=== PATIENT | female | born 1970 | race Caucasian/White ===

== ENCOUNTER 2016-04-10 14:45 | Outpatient (CLI) ==
[2012-09-22 20:52] VITALS: BMI 23.5
[2016-04-10 15:07] LABS: BASOPHILS % (AUTO) 0.6 % (0.0-3.0); EOSINOPHILS # (AUTO) 0.1 K/ul (0.0-0.7); EOSINOPHILS % (AUTO) 0.7 % (0.0-7.0); HEMATOCRIT 33.9 % (37.0-47.0); HEMOGLOBIN 11.4 g/dl (12.0-16.0); IMMATURE GRANULOCYTE % (AUTO) 0.3 % (0.0-5.0); IMMATURE RETIC FRACTION 4.3; LYMPHOCYTES # (AUTO) 2.9 K/uL (0.60-3.4); LYMPHOCYTES % (AUTO) 40.1 (10.0-50.0); MEAN CORPUSCULAR HEMOGLOBIN 29.8 pg (27.0-31.0); MEAN CORPUSCULAR HGB CONC 33.6 (31.8-35.4); MEAN CORPUSCULAR VOLUME 88.7 fl (81.0-99.0); MONOCYTES # (AUTO) 0.4 K/uL (0.4-2.0); MONOCYTES % (AUTO) 5.5 (0-10); NEUTROPHILS # (AUTO) 3.8 K/ul (2.0-6.9); NEUTROPHILS % (AUTO) 52.8; PLATELET COUNT 246 10^3/uL (140-440); RED BLOOD COUNT 3.82 10^6/ul (4.20-5.40); RETICULOCYTE % 0.86 %; WHITE BLOOD COUNT 7.24 K/ul (4.6-10.2)
[2016-04-10 16:19] LABS: ALBUMIN 4.4 g/dL (3.4-5.0); ALBUMIN/GLOBULIN RATIO 1.26; ANION GAP 16.1; BILIRUBIN,TOTAL 0.68 mg/dL (0.00-1.20); BUN/CREATININE RATIO 11.7; CALCIUM 9.8 mg/dL (8.2-10.2); CHOL/HDL RATIO 3.2 (4.5-5.5); CREATININE 0.94 mg/dL (0.60-1.30); FERRITIN 162.17 ng/mL (4.63-204.00); FOLATE 15.4 ng/mL (3.1-20.5); POTASSIUM 4.1 mmol/L (3.5-5.10); TOTAL PROTEIN 7.9 g/dL (6.4-8.2)
== END 2016-04-10 14:46 | disposition home or self-care (01) ==
LOC: LAB 14:45
PROVIDERS: ATTEND Internal Medicine
DX: E78.5 Hyperlipidemia, unspecified (principal); I10 Essential (primary) hypertension; D64.9 Anemia, unspecified; R13.10 Dysphagia, unspecified
CPT/HCPCS: 36415; 80053; 80061; 82306; 82607; 82728; 82746; 83036; 83540; 83550; 84443; 85025; 85045

== ENCOUNTER 2016-09-26 14:51 | Outpatient (CLI) ==
[2012-09-22 20:52] VITALS: BMI 23.5
[2016-09-26 15:07] LABS: BASOPHILS # (AUTO) 0.1 K/uL (0-0.2); EOSINOPHILS # (AUTO) 0.1 K/ul (0.0-0.7); EOSINOPHILS % (AUTO) 1.1 % (0.0-7.0); HEMATOCRIT 36.1 % (37.0-47.0); HEMOGLOBIN 12.2 g/dl (12.0-16.0); IMMATURE GRANULOCYTE % (AUTO) 0.2 % (0.0-5.0); LYMPHOCYTES # (AUTO) 2.4 K/uL (0.60-3.4); MEAN CORPUSCULAR HGB CONC 33.8 (31.8-35.4); MEAN CORPUSCULAR VOLUME 88.9 fl (81.0-99.0); MONOCYTES # (AUTO) 0.3 K/uL (0.4-2.0); NEUTROPHILS # (AUTO) 3.4 K/ul (2.0-6.9); NEUTROPHILS % (AUTO) 53.7; PLATELET COUNT 273 10^3/uL (140-440); RED BLOOD COUNT 4.06 10^6/ul (4.20-5.40); WHITE BLOOD COUNT 6.25 K/ul (4.6-10.2)
[2016-09-26 15:47] LABS: ALBUMIN 4.5 g/dL (3.4-5.0); ALBUMIN/GLOBULIN RATIO 1.32; ANION GAP 13.4; BILIRUBIN,TOTAL 0.71 mg/dL (0.00-1.20); BUN/CREATININE RATIO 10.84; CALCIUM 10.1 mg/dL (8.2-10.2); CHOL/HDL RATIO 3.4 (4.5-5.5); CREATININE 0.83 mg/dL (0.60-1.30); POTASSIUM 4.4 mmol/L (3.5-5.10); TOTAL PROTEIN 7.9 g/dL (6.4-8.2)
== END 2016-09-26 14:52 | disposition home or self-care (01) ==
LOC: LAB 14:51
PROVIDERS: ATTEND Internal Medicine
DX: E78.5 Hyperlipidemia, unspecified (principal); D64.9 Anemia, unspecified; I10 Essential (primary) hypertension; E53.8 Deficiency of other specified B group vitamins
CPT/HCPCS: 36415; 80053; 80061; 82607; 83036; 84443; 85025

== ENCOUNTER 2016-11-20 12:34 | Outpatient (CLI) ==
[2012-09-22 20:52] VITALS: BMI 23.5
== END 2016-11-20 12:35 | disposition home or self-care (01) ==
LOC: LAB 12:34
PROVIDERS: ATTEND Allergy & Immunology
DX: T78.1XXA Other adverse food reactions, not elsewhere classified, initial encounter (principal)
CPT/HCPCS: 36415

== ENCOUNTER 2017-02-25 19:48 | Emergency (ER) | payer OTHER ==
[2017-02-25 19:55] VITALS: BP 145/85; TEMP 98.8; BMI 21.7
[2017-02-25] MEDS ORDERED: TORADOL IM STA (20:05)
--- NOTE | 2017-02-25 20:12 | ED.PDOC ---
General ED Provider: Dr. 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 Additionally complains of some numbness radiating to the forearm. The Pain she states is located on the lower mid back. Time Seen by Physician: 20:08 Mode of Arrival: Walk-In Information Source: Patient Exam Limitations: No limitations Primary Care Provider: TERRENCE PRATT Nursing and Triage Documentation Reviewed and Agree: Yes Reviewed sepsis parameters & appropriate labs ordered?: Yes System Inflammatory Response Syndrome: Not Applicable Sepsis Protocol: For patient's 13 years and over: Temp is 96.8 and below OR 101 and greater Pulse >90 BPM Resp >20/minute Acutely Altered Mental Status Are patient's symptoms suggestive of a new infection, such as: -Pneumonia -Skin, Soft Tissue -Endocarditis -UTI -Bone, Joint Infection -Implantable Device -Acute Abdominal Infection -Wound Infection -Meningitis -Blood Stream Catheter Infection -Unknown System Inflammatory Response Syndrome: Not Applicable Musculoskeletal Complaint Exam - Elbow Pain Complaint/Exam Mechanism of Injury: Reports: Trauma Onset/Duration: 30 min ago Symptoms Are: Still present Onset of Pain: Reports: Immediate, Post accident Initial Severity: Severe Current Severity: Moderate Location: Reports: Discrete (right elbow ) Character: Reports: Aching, Throbbing Alleviating: Reports: Rest, Ice Aggravating: Reports: Movement Associated Signs and Symptoms: Reports: Swelling, Redness, Numbness, Tingling. Denies: Bruising, Fever, Weakness Related Surgical History: Reports: None Elbow Findings: Present: Swelling, Ecchymosis Tenderness: Present: Lateral Condyle, Olecranon, Radial Head Limited Range of Motion: Present: Flexion, Extension, Pronation, Supination Differential Diagnoses: Closed Fracture, Sprain, Strain, Tendonitis - Back Pain Complaint/Exam Mechanism of Injury: Reports: Trauma Onset/Duration: 30 mins ago Symptoms Are: Still present Timing: Constant Initial Severity: Severe Current Severity: Moderate Location: Reports: Discrete (mid lumber area ) Character: Reports: Aching, Throbbing Aggravating: Reports: Bending, Walking Alleviating: Reports: None TAD Risk Factors: Reports: None AAA Risk Factors: Reports: None Cauda Equina Risk Factors: Reports: None Epidural Abcess Risk Factors: Reports: None Related Surgical History: Reports: None Focal Tenderness: Yes ( lumber spine area ) Paraspinal Muscle Tenderness: No Paraspinal Muscle Spasm: Yes (mild) Scoliosis: No Lordosis: No Kyphosis: No SLR Test: Right Negative, Left Negative Hip Motion Testing Pain: Right Negative Focal Weakness: Present: None, Left facial Focal Sensory Loss: Present: None Gait: Present: Normal Back Picture: 1 - tenderness to palpation Differential Diagnoses: Herniated Disk, Strain, Sprain Review of Systems - Review Of Systems Constitutional: Reports: No symptoms Eyes: Reports: No symptoms Ears, Nose, Mouth, Throat: Reports: No symptoms Respiratory: Reports: No symptoms Cardiac: Reports: No symptoms GI: Reports: No symptoms : Reports: No symptoms Musculoskeletal: Reports: Back pain, Joint pain Skin: Reports: Bruising Neurological: Reports: Anxiety Endocrine: Reports: No symptoms Hematologic/Lymphatic: Reports: No symptoms All Other Systems: Reviewed and Negative Past Medical History - Past Medical History Previously Healthy: Yes Endocrine: Reports: None Cardiovascular: Reports: Hypertension Respiratory: Reports: None Hematological: Reports: None Gastrointestinal: Reports: None Genitourinary: Reports: None Neuro/Psych: Reports: None Musculoskeletal: Reports: None Cancer: Reports: None Last Menstrual Period: NA - Surgical History General Surgical History: Reports: Hysterectomy, Appendectomy, Cholecystectomy - Family History Family History: Reports: None - Social History Smoking Status: Never smoker Hx Substance Use: No Alcohol Screening: None - Immunizations Tetanus Shot up to Date: Yes Physical Exam - Physical Exam Appearance: Well-appearing Pain Distress: Moderate Neck: Supple Respiratory: Airway patent, Breath sounds clear, Breath sounds equal, Respirations nonlabored Cardiovascular: RRR, Pulses normal, No rub, No murmur GI/: Soft, Nontender, No masses, Bowel sounds normal, No Organomegaly Musculoskeletal: Limited ROM Skin: Warm, Dry Neurological: Alert, Oriented Interpretation - Radiology Interpretation Radiology Interpretation By: ED Physician Radiology Results: Negative Exam Interpreted: Other (Elbow) Radiology Interpretation By: ED Physician Radiology Results: Negative Exam Interpreted: Other (Lumbar spine area ) Critical Care Note - Critical Care Note Total Time (mins): 0 Course - Course Orders, Labs, Meds: Orders Category Date Time Status AIDA [ED AIDA WRAP] .ONCE EMERGENCY 02/25/17 21:03 Active ED APPLY ICE AFFECTED AREA .ONCE EMERGENCY 02/25/17 20:05 Active Hydrocodone Bit/Acetaminophen [Flint 5-325] MEDS 02/25/17 21:14 Discontinued 2 tab PO ONCE STA Ketorolac Tromethamine [Toradol] MEDS 02/25/17 20:05 Discontinued 60 mg IM ONCE STA ELBOW, RIGHT MIN 3 VIEWS Stat RADS 02/25/17 20:05 Taken LUMBAR SPINE, MIN 4 VIEWS Stat RADS 02/25/17 20:05 Taken Medications Discontinued Medications Generic Name Dose Route Start Last Admin Trade Name Freq PRN Reason Stop Dose Admin Acetaminophen/Hydrocodone Bitart 2 tab 02/25/17 21:14 Flint 5-325 PO 02/25/17 21:15 ONCE STA Ketorolac Tromethamine 60 mg 02/25/17 20:05 02/25/17 20:31 Toradol IM 02/25/17 20:06 60 mg ONCE STA Administration Vital Signs: Temp Pulse Resp BP Pulse Ox 02/25/17 19:49 98.8 F 74 16 145/85 H 98 Departure - Departure Time of Disposition: 21:12 Disposition: HOME SELF-CARE Discharge Problem: Elbow contusion Qualifiers: Encounter type: initial encounter Laterality: right Qualified Code(s): S50.01XA - Contusion of right elbow, initial encounter Lumbar back sprain Qualifiers: Encounter type: initial encounter Qualified Code(s): S33.5XXA - Sprain of ligaments of lumbar spine, initial encounter Instructions: Elbow Sprain (ED), Lower Back Exercises (ED) Condition: Stable Pt referred to PMD for follow-up: Yes IPMP verified?: No Additional Instructions: Take medications as prescribed Follow up with PCP in 3 -5 days if not better. Prescriptions: Hydrocodone/Acetaminophen [Hydrocodon-Acetaminophen 5-325] 1 each PO TID PRN # 12 tablet PRN Reason: Severe Pain Allergies/Adverse Reactions: Allergies fish oil Allergy (Unverified 05/25/15 14:41) Rash Home Medications: Ambulatory Orders Naproxen [Naprosyn] 500 mg PO BID #50 07/18/15 Hydrocodone/Acetaminophen [Hydrocodon-Acetaminophen 5-325] 1 each PO TID PRN # 12 tablet 02/25/17 Disposition Discussed With: Patient
[2017-02-25] MEDS ORDERED: ED AFTER HOURS SUPPLY MED SENT HOME PO ONE (21:03)
[2017-02-25] MEDS ORDERED: NORCO 5-325 PO STA (21:14)
--- NOTE | 2017-02-26 07:09 | DI ---
EXAM: RIGHT ELBOW HISTORY: Fall, pain and swelling FINDINGS: Right elbow three-view. Bone and joint structures appear normal. There is no joint dislo cation or effusion. No fracture is identified. Bone density and soft tissues are within normal limi ts. IMPRESSION: Findings within normal limits.
--- NOTE | 2017-02-26 07:10 | DI ---
EXAM: LUMBAR SPINE 5 VIEWS HISTORY: Lower back pain, fall FINDINGS: Lumbar spine five views including bilateral obliques. Probable subtle scoliosis. The vis ualized body of the sacrum and sacroiliac joints are normal. Lateral views demonstrate normal verteb ral body height and disc spaces. No spondylolisthesis. Oblique views reveal normal facets and pars intra-articularis structures. Bone density normal. IMPRESSION: No fracture or subluxation.
== END 2017-02-25 21:24 | disposition home or self-care (01) ==
LOC: ED 19:48
DX: S50.01XA Contusion of right elbow, initial encounter (principal); S33.5XXA Sprain of ligaments of lumbar spine, initial encounter; W00.0XXA Fall on same level due to ice and snow, initial encounter; Y92.481 Parking lot as the place of occurrence of the external cause
CPT/HCPCS: 96372; 99283

== ENCOUNTER 2017-05-21 10:03 | Outpatient (CLI) | payer OTHER | END 2017-05-21 10:04 | disposition home or self-care (01) | LOC: LAB 10:03 | PROVIDERS: ATTEND Internal Medicine | DX: E78.5 Hyperlipidemia, unspecified (principal); I10 Essential (primary) hypertension | CPT/HCPCS: 36415; 80053; 80061; 83036; 84443; 85025 ==

== ENCOUNTER 2017-08-21 09:57 | Outpatient (CLI) | payer OTHER ==
--- NOTE | 2017-08-21 11:46 | DI ---
EXAM: PA and lateral views of the chest HISTORY: Left-sided chest pain COMPARISON: Chest x-ray 09/22/[address] chest 09/22/2012 with multiple priors FINDINGS: The cardiomediastinal silhouette is normal. There is no pneumothorax or pleural effusion. There is no consolidation, nodule or mass. The osseous structures are unremarkable. IMPRESSION: No acute cardiopulmonary process
--- NOTE | 2017-08-21 11:51 | DI ---
EXAM: Three views of the thoracic spine HISTORY: Back pain. COMPARISON: None FINDINGS: There is no acute compression fracture or subluxation. There is minimal disc space narrowi ng and osteophyte formation. There is no lytic or blastic lesion. Soft tissues are unremarkable. S urgical clips in right upper quadrant are present. 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
== END 2017-08-21 09:58 | disposition home or self-care (01) ==
LOC: RAD 09:57
PROVIDERS: ATTEND Internal Medicine
DX: R07.9 Chest pain, unspecified (principal); M54.9 Dorsalgia, unspecified; I10 Essential (primary) hypertension; D64.9 Anemia, unspecified; E78.5 Hyperlipidemia, unspecified
CPT/HCPCS: 36415; 80053; 80061; 82550; 82553; 83036; 84443; 85025; 85651

== ENCOUNTER 2017-10-24 07:43 | Outpatient (CLI) | payer OTHER ==
--- NOTE | 2017-10-24 10:15 | US ---
EXAM: Abdominal ultrasound limited HISTORY: Epigastric pain with cholecystectomy COMPARISON: CT abdomen 10/22/2011 TECHNIQUE: Sonographic and limited Doppler evaluation of the right upper quadrant was performed. FINDINGS: The liver is increased in echogenicity and measures 17 cm. The portal vein is patent. Th e gallbladder has been removed. Common bile duct is unremarkable and measures 0.5 cm in diameter. The pancreas is unremarkable in appearance. The right kidney measures 9.2 x 3.4 x 3.0 cm with cortica l thickness of 0.7 cm. IMPRESSION: 1. Increased echogenicity of the liver suggestive of hepatic steatosis. 2. Changes of prior cholecystectomy.
== END 2017-10-24 07:44 | disposition home or self-care (01) ==
LOC: RAD 07:43
PROVIDERS: ATTEND Family Medicine
DX: R10.13 Epigastric pain (principal); R10.11 Right upper quadrant pain
CPT/HCPCS: 36415; 80053; 83690; 85025; 85651; 86038; 86140

== ENCOUNTER 2017-10-30 16:40 | Outpatient (CLI) ==
--- NOTE | 2017-10-31 09:23 | CT ---
EXAM: CT of the abdomen with and without contrast History: Epigastric abdominal pain and bloating. Comparison: Abdominal ultrasound 10/24/2017, CT abdomen 10/22/2011 Technique: Multiplanar CT images through the abdomen were obtained with and without the administrati on of IV contrast. Findings: Lung bases are clear. No acute osseous abnormalities. Status post cholecystectomy. The liver is mildly enlarged measuring 18 cm in length. The liver is f atty. Spleen is unremarkable. No renal stones and no hydronephrosis. No ureteral calculi. The appe ndix is not seen and might be off the field of view. Adrenal glands are unremarkable. Pancreas is wi thin normal limits. No renal masses. No dilated loops of bowel. No free air and no ascites. No ly mphadenopathy. No protruding hernias. Impression: 1. No acute intra-abdominal process. 2. Enlarged fatty liver. 3. Status post cholecystectomy
== END 2017-10-30 16:41 | disposition home or self-care (01) ==
LOC: RAD 16:40
PROVIDERS: ATTEND Family Medicine
DX: R10.13 Epigastric pain (principal); G89.18 Other acute postprocedural pain

== ENCOUNTER 2017-12-02 08:27 | Outpatient (CLI) | END 2017-12-02 08:28 | disposition home or self-care (01) | LOC: FCC-LAB 08:27 | PROVIDERS: ATTEND Family Medicine | DX: R55 Syncope and collapse (principal) | CPT/HCPCS: 36415; 83037 ==

== ENCOUNTER 2017-12-02 13:29 | Outpatient (CLI) | payer OTHER | END 2017-12-02 13:30 | disposition home or self-care (01) | LOC: LAB 13:29 | PROVIDERS: ATTEND Family Medicine | DX: R26.89 Other abnormalities of gait and mobility (principal); M54.6 Pain in thoracic spine; R52 Pain, unspecified; G89.29 Other chronic pain; E34.9 Endocrine disorder, unspecified; E55.9 Vitamin D deficiency, unspecified; R79.89 Other specified abnormal findings of blood chemistry | CPT/HCPCS: 36415; 80053; 82306; 83037; 84439; 84443; 84702; 85025; 85651; 86038; 86140 ==

== ENCOUNTER 2017-12-04 07:55 | Outpatient (CLI) | payer OTHER ==
--- NOTE | 2017-12-04 10:24 | MRI ---
EXAM: Brain MRI with and without contrast. HISTORY: Abnormality of gait and mobility. COMPARISON: None. TECHNIQUE: Multiplanar, multisequence MR images were acquired of the brain before and after administ ration of intravenous contrast. FINDINGS: The midline structures are central and the craniocervical junction is unremarkable. There is a small 3.4 cm AP by 9.4 mm TX by 1.1 cm CC crescent shaped ovoid cystic lesion in the superior ri ght basal ganglia along the lateral body of the right lateral ventricle which is at least partially s eparated from the lateral ventricle by a thin septation. This follows cerebrospinal fluid on all pul se sequences. 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 The third and fourth ventricles and the sulci are normal in size. No abnormal extra-axial fluid collections ar e identified. The brain parenchyma has no diffusion restriction to suggest acute hypoperfusion or infarction. Ther e is a thin rim of periventricular FLAIR hyperintensity and there are small T2 / FLAIR hyperintensiti es in the supratentorial white matter consistent with minor to mild leukomalacia. There is no abnorm al dark gradient echo signal. After administration of gadolinium, no enhancing lesions are identifie d. The corpus callosum is normal. The pituitary gland is low normal in size with homogeneous contra st enhancement. The infundibulum is midline. There are no intraorbital masses. Paranasal sinuses, middle ears and mastoids are clear. Rightward nasal septal deviation is present. There is no abnormal contrast enhancement in the intra auditory c anals or labyrinthine structures. Flow voids are present in the major intracranial arteries and dural venous sinuses. IMPRESSION: 1. 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 This may be seen as a sequela of an early in utero cerebral ischemic insult or can be familial. No significant surrounding gliosis is present to suggest a or r ecent ischemic insult. 2. Minor to mild leukomalacia which is nonspecific. 3. No intracranial mass, hemorrhage or acute cerebral infarct.
== END 2017-12-04 07:56 | disposition home or self-care (01) ==
LOC: RAD 07:55
PROVIDERS: ATTEND Family Medicine
DX: R26.89 Other abnormalities of gait and mobility (principal); E34.9 Endocrine disorder, unspecified; R14.0 Abdominal distension (gaseous); R51 Headache
CPT/HCPCS: 93005; 93010

== ENCOUNTER 2018-05-10 19:54 | Emergency (ER) | payer OTHER ==
[2018-05-10] MEDS ORDERED: TETRACAINE 0.5% UNIT-DOSE OP STA (19:58)
[2018-05-10] MEDS ORDERED: EYE-STREAM OP STA (19:58)
[2018-05-10] MEDS ORDERED: FUL-GLO OP STA (19:59)
[2018-05-10 20:00] VITALS: BP 128/84; TEMP 97.9; BMI 24.7
[2018-05-10] MEDS ORDERED: CIPRO 0.3% OPTH SOL OP STA (20:41)
--- NOTE | 2018-05-10 20:45 | ED.PDOC ---
General ED Provider: Dr. DEANA GARY Chief Complaint: Eye Problem Stated Complaint: Patient is a 48 year old Time Seen by Physician: 20:00 Mode of Arrival: Walk-In Information Source: Patient Exam Limitations: No limitations Primary Care Provider: GRANT CHUNG Nursing and Triage Documentation Reviewed and Agree: Yes Does patient meet sepsis criteria?: No System Inflammatory Response Syndrome: Not Applicable Sepsis Protocol: For patient's 13 years and over: Temp is 96.8 and below OR 101 and greater Pulse >90 BPM Resp >20/minute Acutely Altered Mental Status Are patient's symptoms suggestive of a new infection, such as: -Pneumonia -Skin, Soft Tissue -Endocarditis -UTI -Bone, Joint Infection -Implantable Device -Acute Abdominal Infection -Wound Infection -Meningitis -Blood Stream Catheter Infection -Unknown EENT Complaint Exam - Eye Complaint/Exam Onset/Duration: 1 day Symptoms Are: Still present Timing: Constant Initial Severity: Moderate Current Severity: Moderate Location: Left Character: Reports: Throbbing, Foreign body sensation Aggravating: Reports: Light, Blinking Alleviating: Reports: Darkness Associated Signs and Symptoms: Reports: Photophobia, Clear drainage Eye Surgical History: Reports: None Penetrating Injury Risk Factors: None Globe Rupture Risk Factors: None Acute Glaucoma Risk Factors: None Optic Artery Occlusion Risk Factors: None Visual Acuity Right Eye: 20/30 Visual Acuity Left Eye: 20/40 Visual Field: Normal Extraocular Movement: Normal Orbit Findings: Normal Globe Findings: Intact Lid Findings: Normal Conjunctival Findings: Red Corneal Findings: Clear Fluorescein Uptake: Yes (at 8 oclock position measuring 2 mm in diameter ) Differential Diagnoses: Conjunctivitis, Corneal Abrasion Review of Systems - Review Of Systems Constitutional: Reports: No symptoms Eyes: Reports: Blurred vision (with pain ) Ears, Nose, Mouth, Throat: Reports: No symptoms Respiratory: Reports: No symptoms Cardiac: Reports: No symptoms GI: Reports: No symptoms : Reports: No symptoms Musculoskeletal: Reports: No symptoms Skin: Reports: No symptoms Neurological: Reports: No symptoms Endocrine: Reports: No symptoms Hematologic/Lymphatic: Reports: No symptoms All Other Systems: Reviewed and Negative Past Medical History - Past Medical History Previously Healthy: Yes Endocrine: Reports: None Cardiovascular: Reports: Hypertension Respiratory: Reports: None Hematological: Reports: None Gastrointestinal: Reports: None Genitourinary: Reports: None Neuro/Psych: Reports: None Musculoskeletal: Reports: None Cancer: Reports: None Last Menstrual Period: 1998 - Surgical History General Surgical History: Reports: Hysterectomy, Appendectomy, Cholecystectomy - Family History Family History: Reports: None - Social History Smoking Status: Never smoker Hx Substance Use: No Alcohol Screening: None - Immunizations Tetanus Shot up to Date: Yes Physical Exam - Physical Exam Appearance: Well-appearing Pain Distress: Moderate Eyes: ABNER, EOMI, Conjunctiva clear ENT: Ears normal, Nose normal, Oropharynx normal Neck: Supple Skin: Warm, Dry Neurological: Alert, Oriented Psychiatric: Anxious Critical Care Note - Critical Care Note Total Time (mins): 0 Course - Course Orders, Labs, Meds: Orders Category Date Time Status ED EYE IRRIGATION .ONCE EMERGENCY 05/10/18 19:58 Active Balanced Salt Solution [Eye-Stream] MEDS 05/10/18 19:58 Discontinued 1 bottle OP ONCE STA Ciprofloxacin Opth Sasha [Cipro 0.3% Opth Sasha] MEDS 05/10/18 20:41 Stat 1 drop OP ONCE STA Fluorescein Sodium [Ful-Mona] MEDS 05/10/18 19:59 Discontinued 1 strip OP ONCE STA Tetracaine HCl/Pf [Tetracaine 0.5% Unit-Dose] MEDS 05/10/18 19:58 Discontinued 2 drop OP ONCE STA Medications Generic Name Dose Route Start Last Admin Trade Name Freq PRN Reason Stop Dose Admin Ciprofloxacin 1 drop 05/10/18 20:41 Cipro 0.3% Opth Sasha OP 05/10/18 20:42 ONCE STA Discontinued Medications Generic Name Dose Route Start Last Admin Trade Name Freq PRN Reason Stop Dose Admin Eye Irrigation Solution 1 bottle 05/10/18 19:58 05/10/18 20:18 Eye-Stream OP 05/10/18 19:59 1 bottle ONCE STA Administration Fluorescein Sodium 1 strip 05/10/18 19:59 05/10/18 20:17 Ful-Mona OP 05/10/18 20:00 1 strip ONCE STA Administration Tetracaine HCl 2 drop 05/10/18 19:58 05/10/18 20:17 Tetracaine 0.5% Unit-Dose OP 05/10/18 19:59 2 drop ONCE STA Administration Vital Signs: Temp Pulse Resp BP Pulse Ox 05/10/18 19:54 97.9 F 82 20 128/84 98 Departure - Departure Time of Disposition: 20:44 Disposition: HOME SELF-CARE Discharge Problem: Corneal abrasion, left Qualifiers: Encounter type: initial encounter Qualified Code(s): S05.02XA - Injury of conjunctiva and corneal abrasion without foreign body, left eye, initial encounter Instructions: Corneal Abrasion (ED) Condition: Stable Pt referred to PMD for follow-up: Yes IPMP verified?: No Additional Instructions: use 2 drops to the left eye every 4 hours for 10 days Follow up with PCP and Eye doctor in 3 days. Allergies/Adverse Reactions: Allergies fish oil Allergy (Verified 05/10/18 20:00) Rash tramadol Adverse Reaction (Intermediate, Verified 05/10/18 20:00) excessive drowsiness Disposition Discussed With: Patient
== END 2018-05-10 21:05 | disposition home or self-care (01) ==
LOC: ED 19:54
DX: S05.02XA Injury of conjunctiva and corneal abrasion without foreign body, left eye, initial encounter (principal)
CPT/HCPCS: 99282

== ENCOUNTER 2018-06-30 16:31 | Outpatient (CLI) | END 2018-06-30 16:32 | disposition home or self-care (01) | LOC: RHC-LAB 16:31 → FCC-LAB 16:32 | PROVIDERS: ATTEND Family Medicine | DX: F41.9 Anxiety disorder, unspecified (principal); I10 Essential (primary) hypertension; D64.9 Anemia, unspecified; F32.9 Major depressive disorder, single episode, unspecified; E55.9 Vitamin D deficiency, unspecified; E53.8 Deficiency of other specified B group vitamins | CPT/HCPCS: 36415; 80053; 80061; 82306; 82607; 84443; 85025 ==

== ENCOUNTER 2018-07-10 10:05 | Outpatient (CLI) | payer OTHER | END 2018-07-10 10:06 | disposition home or self-care (01) | LOC: RHC-LAB 10:05 → FCC-LAB 10:06 | PROVIDERS: ATTEND Family Medicine | DX: E34.9 Endocrine disorder, unspecified (principal); R79.89 Other specified abnormal findings of blood chemistry; E53.8 Deficiency of other specified B group vitamins | CPT/HCPCS: 36415; 83090; 84439; 84702 ==

== ENCOUNTER 2018-07-17 14:19 | Outpatient (CLI) | END 2018-07-17 14:20 | disposition home or self-care (01) | LOC: LAB 14:19 | PROVIDERS: ATTEND Family Medicine | DX: E72.11 Homocystinuria (principal) | CPT/HCPCS: 36415; 82306; 82746 ==

== ENCOUNTER 2018-07-22 13:52 | Outpatient (CLI) | END 2018-07-22 13:53 | disposition home or self-care (01) | LOC: LAB 13:52 | PROVIDERS: ATTEND Family Medicine | DX: E55.9 Vitamin D deficiency, unspecified (principal) | CPT/HCPCS: 36415; 82306 ==